=== PATIENT | male | born 1960 | race Caucasian/White ===

== ENCOUNTER → 2018-02-15 | Outpatient (CLI) | payer OTHER ==
--- NOTE | 2018-02-15 12:33 | Diagnostic Imaging Report ---
TECHNIQUE: Magnetic resonance imaging of the RIGHT KNEE was performed WITHOUT injected contrast. HISTORY: PATELLAR BURSITIS, fell COMPARISON: None available. FINDINGS: LIGAMENTS AND TENDONS: ACL: Intact, minimal intrasubstance degeneration. PCL: Intact Collateral ligaments: Intact Iliotibial band: Unremarkable Popliteal tendon: Intact Extensor mechanism: Intact, minimal intrasubstance degeneration of the proximal patellar tendon. JOINT: Menisci: Medial: Subtle contour irregularity involving the periphery of the posterior horn, without a discrete displaced tear. Lateral: Intact Articular Cartilage: Medial Compartment: Intermediate to high-grade erosion of the weightbearing cartilage. Lateral Compartment: Low-grade erosion, high-grade fissuring, and mild fibrillation of the weightbearing cartilage. Patellofemoral Compartment: Full-thickness erosion at the patellar apex and adjacent medial facet. Joint Fluid: Small effusion and synovitis. BONES: No focal or infiltrative bone marrow replacing abnormality. Focal curvilinear bone marrow edema within the subchondral bone at the central weightbearing aspect of the medial femoral condyle (series 3 image 15 and series 5 image 14). No discrete fracture. SOFT TISSUES: Mild nonspecific superficial prepatellar edema, without prepatellar bursitis or hematoma. IMPRESSION: 1. Prepatellar soft tissue edema, compatible with a contusion given the provided history. 2. 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 3. Minimal proximal patellar tendinosis. Signed by: Dr. Julio Bro D.O., M.M.M. on 02/15/2018 12:29 PM
== END ==
LOC: MRI 09:56
PROVIDERS: ATTEND Family Medicine
DX: M70.51 Other bursitis of knee, right knee (principal)